=== PATIENT | female | born 1970 | race Caucasian/White ===

== ENCOUNTER 2023-01-03 17:36 | Emergency (ER) | payer OTHER, MEDICAID, SELFPAY ==
[2023-01-03 17:42] VITALS: BP 148/64; PULSE 89; RESP 16; TEMP 36.8; O2SAT 100; BMI 22.3
--- NOTE | 2023-01-03 17:42 | ED.LOWEXIN ---
HPI - Extremity Injury (Lower) <OLAYINKA Taylor Last Filed: 01/03/23 18:08> General Chief Complaint: Extremity Injury, Lower Stated Complaint: Rt foot cut Time Seen by Provider: 01/03/23 17:42 History of Present Illness HPI Narrative: This is a 52-year-old female presents emergency department due to a right foot laceration. She states that she cut her bottom of her right foot on a piece of glass a proximally 18 hours ago. Unsure of tetanus is up-to-date. No active bleeding but she stated that she wanted to come to the emergency department to get the wound checked out. Denies any discharge or erythema around the wound. Related Data Previous Rx's Medication Instructions Recorded cephalexin 500 mg capsule 500 mg PO QID #28 caps 01/03/23 Allergies Allergy/AdvReac Type Severity Reaction Status Date / Time No Known Drug Allergies Allergy Verified 01/03/23 17:47 Review of Systems <Remi Hernandez PA-C - Last Filed: 01/03/23 18:08> Review of Systems Narrative: GENERAL: Denies chills, fatigue, malaise, fever, sweats. HEENT: Denies sinus pain, ear pain, sore throat, difficulty swallowing, dizziness. RESPIRATORY: Denies dyspnea, cough, wheezing, hemoptysis, sputum. CARDIOVASCULAR: Denies chest pain, palpitations, orthopnea, edema, GASTROINTESTINAL: Denies nausea, vomiting, abdominal pain, diarrhea, constipation, melena. : Denies dysuria, frequency, incontinence, hematuria, urinary retention. MUSCULOSKELETAL: denies weakness, joint pain, or bony pain SKIN: Laceration to the bottom of the right foot NEUROLOGIC: Denies weakness, headache, numbness, change in speech, confusion, seizures, incoordination. PSYCHIATRIC: No concerning psychosocial issues. 12 point review of systems is negative except for those stated above Patient History <OLAYINKA Taylor Last Filed: 01/03/23 18:08> Social History Smoking Status: Former smoker Exam <OLAYINKA Taylor Last Filed: 01/03/23 18:08> Narrative Exam Narrative: GENERAL: Well-developed patient, in mild distress. HEAD: Atraumatic. Normocephalic. EYES: Pupils equal round and reactive. Extraocular motions intact. No scleral icterus. No injection or drainage. ENT: Nose without bleeding, purulent drainage. Throat without erythema, tonsillar hypertrophy or exudate. Airway patent. NECK: Trachea midline. Non tender CARDIOVASCULAR: Regular rate and rhythm without murmurs, gallops, or rubs. RESPIRATORY: Clear to auscultation. Breath sounds equal bilaterally. No wheezes, rales, or rhonchi. GASTROINTESTINAL: Abdomen soft, non-tender, nondistended. EXTREMITIES: No edema or joint tenderness. BACK: Nontender without deformity or crepitance. No flank tenderness. NEURO: AOx3. SKIN: Very superficial 3 cm laceration to the plantar aspect of the right foot. No active bleeding or spreading erythema Initial Vital Signs Initial Vital Signs: Vital Signs Temperature 98.2 F 01/03/23 17:42 Pulse Rate 89 01/03/23 17:42 Respiratory Rate 16 01/03/23 17:42 Blood Pressure 148/64 H 01/03/23 17:42 Pulse Oximetry 100 01/03/23 17:42 Oxygen Delivery Method Room Air 01/03/23 17:42 <Radha Simmons DO - Last Filed: 01/04/23 08:06> Initial Vital Signs Initial Vital Signs: Vital Signs Temperature 98.2 F 01/03/23 17:42 Pulse Rate 89 01/03/23 17:42 Respiratory Rate 16 01/03/23 17:42 Blood Pressure 148/64 H 01/03/23 17:42 Pulse Oximetry 100 01/03/23 17:42 Oxygen Delivery Method Room Air 01/03/23 17:42 Procedures <Remi Hernandez PA-C - Last Filed: 01/03/23 18:08> Laceration Repair Laceration 1: Time of procedure: 18:07 Site: lower extremity (Right foot) Size (cm): 3 Description: linear Depth: simple, single layer Skin layer closed with: dermabond Course <OLAYINKA Taylor Last Filed: 01/03/23 18:08> Orders Ordered: Discontinued Medications Diphtheria/Tetanus/Acell Pertussis (Diph,Pertuss(Acell),Tet Vac/Pf 0.5 Ml Syringe) 0.5 ml IM .ONCE ONE Stop: 01/03/23 17:48 Last Admin: 01/03/23 17:51 Dose: Not Given Documented By: BS Diphtheria/Tetanus/Acell Pertussis (Tet,Diph,Pertuss(Acell),Vac/Pf 0.5 Ml Syringe) 0.5 ml IM .ONCE ONE Stop: 01/03/23 17:53 Last Admin: 01/03/23 17:55 Dose: 0.5 ml Documented By: RB Vital Signs Vital signs: Vital Signs - 8 hr 01/03/23 17:42 Temperature 98.2 F Pulse Rate 89 Respiratory Rate 16 Blood Pressure 148/64 H Pulse Oximetry 100 Oxygen Delivery Method Room Air <Radha Simmons DO - Last Filed: 01/04/23 08:06> Orders Ordered: Discontinued Medications Diphtheria/Tetanus/Acell Pertussis (Diph,Pertuss(Acell),Tet Vac/Pf 0.5 Ml Syringe) 0.5 ml IM .ONCE ONE Stop: 01/03/23 17:48 Last Admin: 01/03/23 17:51 Dose: Not Given Documented By: BS Diphtheria/Tetanus/Acell Pertussis (Tet,Diph,Pertuss(Acell),Vac/Pf 0.5 Ml Syringe) 0.5 ml IM .ONCE ONE Stop: 01/03/23 17:53 Last Admin: 01/03/23 17:55 Dose: 0.5 ml Documented By: RB Vital Signs Vital signs: Vital Signs - 8 hr 01/03/23 17:42 Temperature 98.2 F Pulse Rate 89 Respiratory Rate 16 Blood Pressure 148/64 H Pulse Oximetry 100 Oxygen Delivery Method Room Air MDM - Extremity Injury (Lower) <Remi Hernandez PA-C - Last Filed: 01/03/23 18:08> MDM Narrative Medical decision making narrative: MDM * differential diagnosis includes but not limited to laceration, tendon injury, fracture * Prior records reviewed: Patient has not been to the emergency department the past. * My lab interpretation: None obtained * My imgaing interpretation: None obtained * Clinical Decision Rules/Scores evaluated: None * Independent discussions with: None ED Course: This is a 52-year-old female presents emergency department due to a very superficial laceration to the bottom of the right foot. This was closed with Dermabond without complications. Tetanus was updated. Antibiotics prescribed for prophylaxis due to nature of the wound. Shared Decision Making: Discussed plan with the patient who is comfortable with the plan. Social Considerations: None Disposition: Discharged home Discharge Plan Departure Patient Disposition: Home Clinical Impression: Laceration of lower extremity Activity Restrictions/Additional Instructions: Thank you for coming to the [facility] Emergency Department today. I am glad that we are able to update her tetanus and close the wound. The Dermabond should wear off over time. Please start the antibiotics if you begin to notice any redness or increased pain or purulent drainage around the wound. You may use ibuprofen and Tylenol for the pain. I sent the medication to [facility] in [place]. I hope you feel better soon. Please follow up with your primary care provider within a week if your symptoms continue. If you do not have a primary care provider please contact the [facility] Resource line at [phone]. They will ask some questions about your medical history and help you get set up with a provider in the community. Prescriptions: New cephalexin 500 mg capsule 500 mg PO QID Qty: 28 0RF Stand Alone Forms: Patient Portal/API ED Sign-out <Radha Simmons, DO - Last Filed: 01/04/23 08:06> Cosign ED Attending Adamaature Attestation: I was immediately available in the department for consultation.
[2023-01-03] MEDS: TET,DIPH,PERTUSS(ACELL),VAC/PF 0.5 ML SYRINGE IM (17:55)
[2023-01-03 18:10] VITALS: PULSE 88
== END 2023-01-03 18:13 | disposition home or self-care (01) ==
LOC: ED 18:19
PROVIDERS: Emergency Provider Physician Assistant Medical
DX: S91.311A Laceration without foreign body, right foot, initial encounter (principal); W25.XXXA Contact with sharp glass, initial encounter; Z23 Encounter for immunization
CPT/HCPCS: 12002; 90471; 99283; 90715